=== PATIENT | female | born 1985 | race Caucasian/White ===

== ENCOUNTER 2018-01-21 11:54 | Emergency (ER) | payer MEDICAID, SELFPAY ==
[2018-01-21 12:24] VITALS: BP 118/90; PULSE 102; RESP 20; TEMP 36.8; O2SAT 99; BMI 38.0
[2018-01-21 12:50] LABS: UTC Influenza A Antigen Negative (Negative); UTC Influenza B Antigen Negative (Negative)
--- NOTE | 2018-01-21 13:06 | HMH.EDUTC ---
[facility] Disposition Clinical Impression: Cough Disposition: Home, Self-Care Condition on Discharge: Good Instructions: DI for Cough -- Adult Additional Instructions: * No sign of bacterial infection. Likely viral. Virus can take 7-14 days to run their course * Monitor Temp. Follow up if fever develops * Encourage fluids, water, gatorade, powerade, pedialyte if /toddler/child * sleep elevated * humidifier/vaporizer * Bromfed may cause drowsiness. Know how it effects you (or your child) before driving, caring for small children, or sending your child to school. No other antihistamines/allergy medications while taking bromfed. Prescriptions: Brompheniramine/Pseudoephed/Dm [Bromfed DM Cough Syrup 5mL] 10 ml PO QID PRN #240 ml PRN Reason: Cough Referrals: Elidia Salinas [Primary Care Provider] - (IMMEDIATELY for new or worsening symptoms OR no noticeable improvement over the next 48-72 hours. 911 for difficulty breathing or swallowing. ) Time of Disposition: 13:11 Medical Decision Making Vital Signs: 01/21/18 12:24 Temperature 98.2 F Temperature Source Temporal Artery Scan Pulse Rate [Left Brachial] 102 H Respiratory Rate 20 Blood Pressure [Left Arm] 118/90 Blood Pressure Mean [Left Arm] 99 Blood Pressure Source [Left Arm] Automatic Cuff Blood Pressure Position [Left Arm] Sitting 02 Sat by Pulse Oximetry 99 Oxygen Delivery Method Room Air - Lab Data Lab results reviewed: Yes: I reviewed the patient's lab results. Lab Results 01/21/18 12:37: Influenza Type A Ag Negative, Influenza Type B Ag Negative - Bryon Inquiry Pt receiving controlled substance: No [facility] HPI - General Stated complaint: drainage, cough Time Seen by Provider: 01/21/18 12:45 Mode of Arrival: Ambulatory Source of Information: Patient Limitations: No Limitations Description of Symptoms (Recalled from Triage Doc. by RN): COUGH AND SINUS DRAINAGE HEENT Symptoms (Recalled from RN notes): Yes (SINUS DRAINAGE) Resp Symptoms (Recalled from RN notes): Yes (COUGH) Skin Symptoms (Recalled from RN notes): No MS Symptoms (Recalled from RN notes): No Functional Status (Recalled from RN notes): N/A - History of Present Illness Provider Complaint: c/o cough x 3-4 days. Wants to rule out flu. Started w/ sore throat but that resolved. No fever, aches, chills. zyrtec hasn't helped. Hasn't taken anything else. Daughter with same symptoms. - Related Data Previous Rx's Medication Instructions Recorded Brompheniramine/Pseudoephed/Dm 10 ml PO QID PRN #240 ml 01/21/18 [Bromfed DM Cough Syrup 5mL] Allergies Allergy/AdvReac Type Severity Reaction Status Date / Time banana Allergy Unknown RASH/ITCHING Verified 01/21/18 12:29 [From BANANAS (FOOD/DRUG)] TONGUE codeine Allergy Unknown NA-NAUSEA/V Verified 01/21/18 12:29 OMITING Penicillins Allergy Unknown UNKNOWN Verified 01/21/18 12:29 From BANANAS (FOOD/DRUG) Allergy Unknown RASH/ITCHING Uncoded 11/19/17 14:41 TONGUE - Worker's Comp Is this a Worker's Comp case?: No [facility] History I have reviewed the patient's past medical history: Yes Medical History: Reports:: Gastroesophageal Reflux Disease(GERD) Denies:: Cancer, Diabetes Mellitus Type 1, Diabetes Mellitus Type 2, Hypertension, MRSA Other Surgeries: Yes: , Other (cholecystectomy, cone VISITOR SERVICES COORDINATOR procedure) Amputation: No Fractures: No - Social History Smoking Status: Current every day smoker Tobacco Type: cigarettes Alcohol Intake: never - Psychiatric History Expresses thoughts of harming self/others: None Suicide Plan Description: No Plan ROS Obtained: Yes Systems reviewed as appropriate & no additional complaints - Constitutional Constitutional: Reports as per HPI, Denies body ache, Denies chills, Denies fatigue, Denies poor appetite - Eyes Eyes: Denies eye discharge, Denies eye pain, Denies other (eye redness) - ENT Ears, Nose, Mouth, and Throat: Reports as per HPI, Denies otalgia, Repo
--- NOTE | 2018-01-21 13:10 | ED_ITS ---
[facility] [place] Impression: Cough Disposition: Home, Self-Care Condition on Discharge: Good Instructions: DI for Cough -- Adult Additional Instructions: * No sign of bacterial infection. Likely viral. Virus can take 7-14 days to run their course * Monitor Temp. Follow up if fever develops * Encourage fluids, water, gatorade, powerade, pedialyte if /toddler/ child * sleep elevated * humidifier/vaporizer * Bromfed may cause drowsiness. Know how it effects you (or your child) before driving, caring for small children, or sending your child to school. No other antihistamines/allergy medications while taking bromfed. Prescriptions: Brompheniramine/Pseudoephed/Dm [Bromfed DM Cough Syrup 5mL] 10 ml PO QID PRN # 240 ml PRN Reason: Cough Referrals: Elidia Salinas [Primary Care Provider] - (IMMEDIATELY for new or worsening symptoms OR no noticeable improvement over the next 48-72 hours. 911 for difficulty breathing or swallowing. ) Time of Disposition: 13:11 Medical Decision Making Vital Signs: 01/21/18 12:24 Temperature 98.2 F Temperature Source Temporal Artery Scan Pulse Rate [Left Brachial] 102 H Respiratory Rate 20 Blood Pressure [Left Arm] 118/90 Blood Pressure Mean [Left Arm] 99 Blood Pressure Source [Left Arm] Automatic Cuff Blood Pressure Position [Left Arm] Sitting 02 Sat by Pulse Oximetry 99 Oxygen Delivery Method Room Air - Lab Data Lab results reviewed: Yes: I reviewed the patient's lab results. Lab Results 01/21/18 12:37: Influenza Type A Ag Negative, Influenza Type B Ag Negative - Bryon Inquiry Pt receiving controlled substance: No [facility] [place] - General Stated complaint: drainage, cough Time Seen by Provider: 01/21/18 12:45 Mode of Arrival: Ambulatory Source of Information: Patient Limitations: No Limitations Description of Symptoms (Recalled from Triage Doc. by RN): COUGH AND SINUS DRAINAGE HEENT Symptoms (Recalled from RN notes): Yes (SINUS DRAINAGE) Resp Symptoms (Recalled from RN notes): Yes (COUGH) Skin Symptoms (Recalled from RN notes): No MS Symptoms (Recalled from RN notes): No Functional Status (Recalled from RN notes): N/A - History of Present Illness Provider Complaint: c/o cough x 3-4 days. Wants to rule out flu. Started w/ sore throat but that resolved. No fever, aches, chills. zyrtec hasn't helped. Hasn't taken anything else. Daughter with same symptoms. - Related Data Previous Rx's Medication Instructions Recorded Brompheniramine/Pseudoephed/Dm 10 ml PO QID PRN #240 ml 01/21/18 [Bromfed DM Cough Syrup 5mL] Allergies Allergy/AdvReac Type Severity Reaction Status Date / Time banana Allergy Unknown RASH/ITCHING Verified 01/21/18 12:29 [From BANANAS (FOOD/DRUG)] TONGUE codeine Allergy Unknown NA-NAUSEA/V Verified 01/21/18 12:29 OMITING Penicillins Allergy Unknown UNKNOWN Verified 01/21/18 12:29 From BANANAS (FOOD/DRUG) Allergy Unknown RASH/ITCHING Uncoded 11/19/17 14:41 TONGUE - Worker's Comp Is this a Worker's Comp case?: No H History I have reviewed the patient's past medical history: Yes Medical History: Reports:: Gastroesophageal Reflux Disease(GERD) Denies:: Cancer, Diabetes Mellitus Type 1, Diabetes Mellitus Type 2, Hypertension, MRSA Other Surgeries: Yes: , Other (cholecystectomy,
[2018-01-21 13:36] VITALS: BP 118/79; PULSE 76; RESP 20; TEMP 36.6
== END 2018-01-21 13:35 | disposition home or self-care (01) ==
PROVIDERS: Emergency Provider Nurse Practitioner Family; Family Provider Internal Medicine Adolescent Medicine; PCP Pediatrics
DX: R05 Cough (principal); K21.9 Gastro-esophageal reflux disease without esophagitis; F17.210 Nicotine dependence, cigarettes, uncomplicated; Z88.0 Allergy status to penicillin; Z88.6 Allergy status to analgesic agent
CPT/HCPCS: 87804; 99202

== ENCOUNTER 2020-09-05 10:41 | Emergency (ER) | payer OTHER, SELFPAY ==
[2020-09-05 11:09] VITALS: BP 138/78; PULSE 93; RESP 20; TEMP 36.6; O2SAT 96; BMI 37.0
--- NOTE | 2020-09-05 11:10 | HMH.EDUTC ---
[facility] [place] Impression: Sprain of left foot Qualifiers: Encounter type: initial encounter Qualified Code(s): S93.602A - Unspecified sprain of left foot, initial encounter Disposition: Home, Self-Care Condition on Discharge: Good Instructions: DI for Foot Sprain Additional Instructions: Rest the extremity, apply ice for 15 minutes as tolerated three or four times per day, Elevate the extremity as tolerated while you are resting. Use the crutches for ambulation. Wear the hard shoe for protection. Take ibuprofen for pain. I sent in a prescription to your pharmacy. Follow up with Dr. Rios. I put in a referral but you need to call her office and schedule an appointment. Follow up with your regular doctor. GO TO THE ER FOR ANY WORSENING SYMPTOMS Prescriptions: Ibuprofen [Ibuprofen 600mg Tablet] 600 mg PO Q6HP PRN #30 tab PRN Reason: Mild Pain Transmission Status: Received by [facility] Referrals: Elidia Salinas [Primary Care Provider] - Maritza Rios DPM [Staff Physician] - Forms: Work/School Release Time of Disposition: 11:39 Medical Decision Making - Medical Records Medical records reviewed: No: I reviewed the patient's medical records. - Bryon Inquiry Pt receiving controlled substance: No Vital Signs: 09/05/20 11:09 09/05/20 12:05 Temperature 97.8 F 97.8 F Temperature Source Oral Pulse Rate 93 H Pulse Rate [Left Brachial] 93 H Respiratory Rate 20 20 Blood Pressure 138/78 Blood Pressure [Right Arm] 138/78 Blood Pressure Mean [Right Arm] 98 Blood Pressure Source [Right Arm] Automatic Cuff Blood Pressure Position [Right Arm] Sitting 02 Sat by Pulse Oximetry 96 Oxygen Delivery Method Room Air - Radiology Data #1 Image(s): Ankle Image Reviewed: Yes I reviewed the patient's radiology image, Yes I have reviewed radiologist's interpretation Preliminary Findings: No Fracture Seen PROCEDURE: XR ANKLE LT MIN 3V CLINICAL INDICATION: FALL Pain COMPARISON: CR XR FOOT LT MIN 3V from 09/05/2020 FINDINGS: No fracture or dislocation. No lytic or blastic change. There is normal mineralization. The joint spaces are well-preserved. No significant degenerative/arthritic changes. No erosive changes evident. Other findings:None. IMPRESSION: No acute findings. Dictated by: Derrek Bacon MD 09/05/2020 11:48 Derrek Bacon MD in [place] 09/05/2020 11:48 [facility] [place] - General Stated complaint: AO 09/04/20 lt foot pain Time Seen by Provider: 09/05/20 11:10 - History of Present Illness Provider Complaint: She states that she was walking and she stepped on uneven ground and twisted her left foot and ankle. This occured yesterday. Since then she has had pain in her foot and ankle that is worse with bearing weight and walking. - Related Data Home Medications Medication Instructions Recorded Confirmed Ibuprofen [Ibuprofen 800mg 800 mg PO TIDP PRN 09/05/20 09/05/20 Tablet] Previous Rx's Medication Instructions Recorded Ibuprofen [Ibuprofen 600mg 600 mg PO Q6HP PRN #30 tab 09/05/20 Tablet] Allergies Allergy/AdvReac Type Severity Reaction Status Date / Time banana Allergy Unknown RASH/ITCHING Verified 12/19/18 12:34 [From BANANAS (FOOD/DRUG)] TONGUE codeine Allergy Unknown NA-NAUSEA/V Verified 12/19/18 12:34 OMITING Penicillins Allergy Unknown UNKNOWN Verified 12/19/18 12:34 [facility] History - Hepatitis A Screen Attestation statement:: This patient has been screened for Hepatitis A risk factors. I have reviewed the patient's past medical history: Yes Medical History: Reports:: Gastroesophageal Reflux Disease(GERD) Denies:: Cancer, Diabetes Mellitus Type 1, Diabetes Mellitus Type 2, Hypertension, MRSA Other Surgeries: Yes: , Other (cholecystectomy, cone REAL ESTATE INSPECTOR procedure) Amputation: No Fractures: No - Social History Smoking Status: Current every day smoker Tobacco Type: cigarettes # Pa
--- NOTE | 2020-09-05 11:13 | XR_ITS ---
PROCEDURE: XR FOOT LT MIN 3V CLINICAL INDICATION: FELL Pain following injury, lateral foot pain COMPARISON: No exams were available for comparison FINDINGS: Osteoarthritic changes are present at the 1st metatarsophalangeal joint with prominent bony hypertrophy at the distal aspect of the 1st metatarsal. No definite acute fracture or dislocation. There is a type 1 os navicularis. The os navicularis appears multi segmented. Other findings:None. IMPRESSION: 1. No acute fracture. 2. 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
--- NOTE | 2020-09-05 11:17 | XR_ITS ---
PROCEDURE: XR ANKLE LT MIN 3V CLINICAL INDICATION: FALL Pain COMPARISON: CR XR FOOT LT MIN 3V from 09/05/2020 FINDINGS: No fracture or dislocation. No lytic or blastic change. There is normal mineralization. The joint spaces are well-preserved. No significant degenerative/arthritic changes. No erosive changes evident. Other findings:None. IMPRESSION: No acute findings. Dictated by: Derrek Bacon MD 09/05/2020 11:48 Derrek Bacon MD in [place] 09/05/2020 11:48
[2020-09-05 12:05] VITALS: BP 138/78; PULSE 93; RESP 20; TEMP 36.6; O2SAT 96
== END 2020-09-05 12:11 | disposition home or self-care (01) ==
PROVIDERS: Emergency Provider Nurse Practitioner Family; PCP Pediatrics
DX: S93.602A Unspecified sprain of left foot, initial encounter (principal); X50.1XXA Overexertion from prolonged static or awkward postures, initial encounter; Y92.019 Unspecified place in single-family (private) house as the place of occurrence of the external cause; K21.9 Gastro-esophageal reflux disease without esophagitis; F17.210 Nicotine dependence, cigarettes, uncomplicated; Z88.0 Allergy status to penicillin
CPT/HCPCS: 73610; 73630; 99201

== ENCOUNTER 2020-09-27 15:34 | Emergency (ER) | payer OTHER, SELFPAY ==
[2020-09-27 16:05] VITALS: BP 142/92; PULSE 97; RESP 16; TEMP 36.8; O2SAT 98; BMI 39.8
[2020-09-27 16:17] LABS: UTC Strep Screen (Rapid) Negative (Negative)
--- NOTE | 2020-09-27 16:18 | HMH.EDUTC ---
[facility] [place] Clinical Impression: Otitis media Qualifiers: Otitis media type: unspecified Laterality: right Qualified Code(s): H66.91 - Otitis media, unspecified, right ear Disposition: Home, Self-Care Condition on Discharge: Good Instructions: Middle Ear Infection, Middle Ear Infections (Alternative Therapy) Additional Instructions: *Monitor Temp, Over the counter Motrin or Tylenol as directed/as needed Tylenol every 4 hours and Motrin every 6 hours (as long as your family doctor has told you that you can take it) for fever or pain. and straight to ER if unable to lower temp less than 101.0 after medication given *Warm salt water gargles may help to soothe the throat *Throat Lozenges *Warm fluids like tea with honey may help to soothe the throat *Sleep elevated *Humidifier/Vaporizer Your throat swab was sent for culture. Those results are typically sent to your primary care. Be sure to follow up in 2-3 days with your family doctor/primary care physician if no improvement so they can review those result and treat if necessary. If you don?t have a primary care doctor, I recommend you get one but in the mean time, you will have to return to a walk in clinic Follow up IMMEDIATELY for new or worsening symptoms or no Noticeable improvement over the next 48-72 hours. 911 for difficulty breathing or swallowing You was tested for today for COVID19 your test result should be back in the next 24 hours, you may call tomorrow after 9am to see if your test results are back and the result You was given a handout with instructions for Self Quarantine and Self isolation for while you wait on test results and what to do if they are positive Prescriptions: Fluticasone Propionate [Flonase 50mcg nasal spray 16gm] 1 - 2 spr NS DAILY #1 bottle Transmission Status: Pending to [facility] Azithromycin [Z-Aldo 250mg Tab] 250 mg PO DIRECTED #6 tab Transmission Status: Pending to [facility] Referrals: Elidia Salinas [Primary Care Provider] - As needed Forms: Work/School Release Time of Disposition: 16:28 Medical Decision Making - Bryon Inquiry Pt receiving controlled substance: No Bryon was queried for this patient: No Vital Signs: 09/27/20 16:05 Temperature 98.2 F Temperature Source Oral Pulse Rate [Radial] 97 H Respiratory Rate 16 Blood Pressure [Right Arm] 142/92 H Blood Pressure Mean [Right Arm] 108 Blood Pressure Source [Right Arm] Automatic Cuff Blood Pressure Position [Right Arm] Sitting 02 Sat by Pulse Oximetry 98 Oxygen Delivery Method Room Air - Lab Data Lab results reviewed: Yes: I reviewed the patient's lab results. Lab Results 09/27/20 16:15: Strep Scn Rapid Clinic Negative Orders (Tests/Meds): ORDERS Category Date Time Status Strep Screen Confirmation Stat Micro 09/27/20 16:15 Received [facility] [place] - General Stated complaint: sore throat, ear ache Time Seen by Provider: 09/27/20 16:19 Mode of Arrival: Ambulatory Source of Information: Patient Limitations: No Limitations Description of Symptoms (Recalled from Triage Doc. by RN): cough, sore throat, head congestion, nausea, body aches, denies fever. HEENT Symptoms (Recalled from RN notes): Yes Resp Symptoms (Recalled from RN notes): No Skin Symptoms (Recalled from RN notes): No MS Symptoms (Recalled from RN notes): No Functional Status (Recalled from RN notes): wnl - History of Present Illness Provider Complaint: Patient states that she has been having sinus pain and pressure along with pain in both ears, sore throat and over all not feeling well States that she hasnt had a fever that she is aware of but feels like her ears are full and causing pain States that today she wasnt feeling better so she come in - Related Data Home Medications Medication Instructions Recorded Confirmed Ibuprofen [Ibuprofen 800mg 800 mg PO TIDP PRN 09/05/20 09/05/20 Tablet] Previous Rx's Medication Instructions Rec
[2020-09-27 16:46] VITALS: BP 142/92; PULSE 97; RESP 16; TEMP 36.8; O2SAT 98
[2020-09-27 20:58] LABS: Adenovirus,PCR Not Detected (NotDetected); Bordetella Pertussis Not Detected (NotDetected); Chlamydophila Pneumoniae, PCR Not Detected (NotDetected); Coronavirus 19, PCR Not Detected (NotDetected); Coronavirus 229E Not Detected (NotDetected); Coronavirus NL63 Not Detected (NotDetected); Coronavirus OC43 Not Detected (NotDetected); Coronovirus HKU1,PCR Not Detected (NotDetected); Human Metapneumovirus Not Detected (NotDetected); Influenza A, PCR Not Detected (NotDetected); Influenza AH1, 2009 Not Detected (NotDetected); Influenza AH1, PCR Not Detected (NotDetected); Influenza AH3,PCR Not Detected (NotDetected); Influenza B, PCR Not Detected (NotDetected); Mycoplasma Pneumoniae, PCR Not Detected (NotDetected); Parainfluenza 1, PCR Not Detected (NotDetected); Parainfluenza 2, PCR Not Detected (NotDetected); Parainfluenza 3, PCR Not Detected (NotDetected); Parainfluenza 4, PCR Not Detected (NotDetected); Respiratory Syncytial Virus Not Detected (NotDetected)
[2020-09-28 07:18] LABS: Rhinovirus/Enterovirus Detected (NotDetected)
== END 2020-09-27 16:47 | disposition home or self-care (01) ==
PROVIDERS: Emergency Provider Nurse Practitioner; PCP Pediatrics
DX: H66.91 Otitis media, unspecified, right ear (principal); K21.9 Gastro-esophageal reflux disease without esophagitis; F17.210 Nicotine dependence, cigarettes, uncomplicated; Z88.0 Allergy status to penicillin
CPT/HCPCS: 87581; 87633; 87798; 87880; 99202; U0003

== ENCOUNTER 2022-02-03 12:50 | Emergency (ER) | payer OTHER, SELFPAY ==
[2022-02-03 12:51] VITALS: BP 134/70; PULSE 83; RESP 16; TEMP 36.6; O2SAT 97; BMI 39.0
[2022-02-03 13:11] LABS: Microscopic, Urine URINE MICROSCOPIC (MICROSCOPIC)
--- NOTE | 2022-02-03 13:13 | HMH.EDGENADL ---
ED Disposition Clinical Impression: Threatened Disposition: Home, Self-Care Condition on Discharge: Good Instructions: DI for Vaginal Bleeding Referrals: Elidia Salinas [Primary Care Provider] - Aleksander Curiel MD [Staff Physician] - - Critical Care Critical Care Time: No Attestation: On 02/03/22, the high probability of a clinically significant, sudden or life threatening deterioration of the following system(s) required my full and direct attention, intervention and personal management. The time I documented below is in addition to time spent performing reported procedures but includes the following listed in this critical care notation. Medical Decision Making - Medical Records Medical records reviewed: Yes: I reviewed the patient's medical records. - Bryon Inquiry Pt receiving controlled substance: No Vital Signs: 02/03/22 12:51 Temperature 97.8 F Temperature Source Oral Pulse Rate [Left Radial] 83 Respiratory Rate 16 Blood Pressure [Right Arm] 134/70 Blood Pressure Mean [Right Arm] 91 Blood Pressure Source [Right Arm] Automatic Cuff Blood Pressure Position [Right Arm] Sitting 02 Sat by Pulse Oximetry 97 Oxygen Delivery Method Room Air - Lab Data Lab Results 02/03/22 13:08: Urine Color Yellow, Urine Appearance Clear, Urine pH 8.0, Ur Specific Browning 1.010, Urine Protein Negative, Urine Glucose (UA) Negative, Urine Ketones Negative, Urine Blood 3+, Urine Nitrate Negative, Urine Bilirubin Negative, Urine Urobilinogen 0.2, Ur Leukocyte Esterase Negative, Urine RBC Occasional, Urine WBC Occasional, Ur Squamous Epith Cells 3-5, Urine Mucus 1+ 02/03/22 13:08: WBC 9.4, RBC 5.16, Hgb 15.9, Hct 48.9 H, MCV 94.8, MCH 30.8, MCHC 32.5, RDW 13.3, Plt Count 333, MPV 8.6, Neut % (Auto) 62.0, Lymph % (Auto) 27.8, [place] % (Auto) 5.3, Eos % (Auto) 1.9, Baso % (Auto) 3.0 H, Neut # (Auto) 5.8, Lymph # (Auto) 2.6, [place] # (Auto) 0.5, Eos # (Auto) 0.2, Baso # (Auto) 0.3 H 02/03/22 13:08: Sodium 134 L, Potassium 3.9, Chloride 102, Carbon Dioxide 27, Anion Gap 8.9, BUN 9, Creatinine 0.50 L, Estimated Creat Clear 218, Estimated GFR 138, Est GFR ( Amer) 167, Glucose 87, Calcium 8.7, Total Bilirubin 0.5, AST 35, ALT 38, Alkaline Phosphatase 64, Total Protein 7.3, Albumin 4.2, Globulin 3.1, Albumin/Globulin Ratio 1.4, HCG, Quant 28 H 02/03/22 13:08: Serum HCG, Qual Positive Result diagrams: 02/03/22 13:08 02/03/22 13:08 Orders (Tests/Meds): ED MEDICATIONS Generic Name Dose Route Start Last Admin Trade Name Freq PRN Reason Stop Dose Admin Sodium Chloride 10 ml 02/03/22 13:05 Sodium Chloride 0.9% 10ml Flush Syringe IV 03/05/22 13:04 NEEDED PRN Maintain IV Site Discontinued Medications Generic Name Dose Route Start Last Admin Trade Name Freq PRN Reason Stop Dose Admin Sodium Chloride 1,000 mls @ 999 mls/hr 02/03/22 13:15 Sod Chlor 0.9% 1000ml Bag IV 02/03/22 14:15 .Q1H1M INGA - Reevaluation(s) Time: 14:39 Reevaluation #1: On reevaluation, the patient is feeling better. She does have a very low hCG serum quant. It could be very early in the , however this is more likely miscarriage. Regardless the patient will need repeat hCG level within 48 hours. 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 Patient was given strict return precautions. Verbalized understanding. Medical Decision Narrative: 36-year-old female presented to the emergency department with some vaginal bleeding. There is concern for miscarriage versus threatened . Work-up initiated. General Adult HPI - General Chief complaint: Vaginal Bleeding Stated complaint: 6 weeks , bleeding Time Seen by Provider: 02/03/22 12:55 Mode of Arrival: Ambulatory Limitations: No Limitations Description of Symptoms (Recalled from ER Triage Doc. by RN): c/o vaginal bleeding prior to arrival to ER. Pt states she is around 6 weeks . Denies any abodmen pain -
[2022-02-03 13:15] LABS: Appearance,Urine CLEAR (Clear); Bilirubin,Urine Negative (Negative); Blood, Urine 3+ (Negative); Color,Urine YELLOW (Yellow); Glucose,Urine (UA) Negative (Negative); Ketones,Urine Negative (Negative); Leukocyte Esterase,Urine Negative (Negative); Nitrate,Urine Negative (Negative); Protein,Urine Negative (Negative); Urobilinogen,Urine 0.2 EU/dl (0.2)
[2022-02-03 13:29] LABS: Mucus,Urine 1+ /lpf; RBC,Urine Occasional #/hpf (0-3); WBC,Urine Occasional #/hpf (0-3)
[2022-02-03 13:36] LABS: Chloride 102 mmol/L (98-107); Sodium 134 mmol/L (136-145)
[2022-02-03 13:37] LABS: Potassium 3.9 mmoL/L (3.5-5.1)
[2022-02-03 13:39] LABS: Alanine Aminotransferase 38 U/L (12-78); Albumin Level 4.2 g/dl (3.5-5.0); Albumin/Globulin Ratio 1.4 (1.1-1.8); Alkaline Phosphatase 64 U/L (38-126); Anion Gap 8.9 mEq/L (5-15); Aspartate Amino Transferase 35 U/L (14-36); Bilirubin,Total 0.5 mg/dl (0.2-1.3); Blood Urea Nitrogen 9 mg/dl (7-17); Carbon Dioxide 27 mmol/L (22.0-30.0); Creatinine Clearance Estimated 218 mL/min (50-200); Estimated Glomerular Filt Rate 138 ml/min (>60); GFR (African American) 167 ML/MIN (>60); Globulin 3.1 g/dL (1.3-3.2); Total Protein,Serum 7.3 g/dl (6.3-8.2)
[2022-02-03 13:40] LABS: Calcium 8.7 mg/dl (8.4-10.2); Glucose 87 mg/dl (74-100)
[2022-02-03 13:56] LABS: HCG,Quantitative 28 mIU/ml (0-5.42)
[2022-02-03 14:00] LABS: HCG Qualitative, Serum Positive (Negative)
[2022-02-03 14:27] LABS: Basophils # 0.3 K/mm3 (0-0.2); Eosinophils # 0.2 K/mm3 (0.0-0.4); Eosinophils % 1.9 % (0.1-12.0); Hematocrit 48.9 % (37.0-47.0); Hemoglobin 15.9 g/dL (12.2-16.2); Lymphocytes # 2.6 K/mm3 (0.7-4.5); Lymphocytes % 27.8 % (10-50); Mean Corpuscular HGB Conc 32.5 g/dL (31.8-35.4); Mean Corpuscular Hemoglobin 30.8 pg (27.0-31.2); Mean Corpuscular Volume 94.8 fl (81-99); Mean Platelet Volume 8.6 fl (7.4-10.4); Monocytes # 0.5 K/mm3 (0.1-1.0); Monocytes % 5.3 % (1.7-9.3); Neutrophils # 5.8 K/mm3 (1.8-7.8); Platelet Count 333 K/mm3 (142-424); Red Blood Count 5.16 M/mm3 (4.20-5.40); Red Cell Distribution Width 13.3 % (11.5-17.5); White Blood Count 9.4 K/mm3 (4.8-10.8)
[2022-02-03 15:04] VITALS: BP 128/74; PULSE 82; RESP 16; TEMP 36.6; O2SAT 97
== END 2022-02-03 15:06 | disposition home or self-care (01) ==
PROVIDERS: Emergency Provider Emergency Medicine; PCP Pediatrics
DX: N93.9 Abnormal uterine and vaginal bleeding, unspecified (principal); K21.9 Gastro-esophageal reflux disease without esophagitis; F17.210 Nicotine dependence, cigarettes, uncomplicated; Z79.1 Long term (current) use of non-steroidal anti-inflammatories (NSAID); Z79.51 Long term (current) use of inhaled steroids; Z79.899 Other long term (current) drug therapy; Z88.0 Allergy status to penicillin; Z88.5 Allergy status to narcotic agent; Z91.018 Allergy to other foods
CPT/HCPCS: 80053; 81001; 84702; 84703; 85025; 96365; 99283

== ENCOUNTER → 2022-02-05 07:50 | Outpatient (CLI) | payer OTHER, SELFPAY ==
[2022-02-05 09:50] LABS: HCG,Quantitative 16 mIU/ml (0-5.42)
== END ==
PROVIDERS: Visit Provider Emergency Medicine
DX: Z34.90 Encounter for supervision of normal pregnancy, unspecified, unspecified trimester (principal); Z3A.01 Less than 8 weeks gestation of pregnancy
CPT/HCPCS: 36415; 84702

== ENCOUNTER 2022-08-23 11:52 | Emergency (ER) | payer OTHER, SELFPAY ==
[2022-08-23 14:20] VITALS: BP 115/44; PULSE 92; RESP 20; TEMP 36.7; O2SAT 100; BMI 38.5
[2022-08-23 14:42] LABS: UTC Influenza A Antigen Negative (Negative); UTC Influenza B Antigen Negative (Negative)
--- NOTE | 2022-08-23 14:58 | EXP.UTC ---
Discharge Plan Disposition Patient Disposition: Home, Self-Care Condition: Good Prescriptions Prescriptions: New azithromycin [Zithromax Z-Aldo] 250 mg tablet See Rx Instructions .ROUTE .COMPLEX 5 Days Qty: 6 0RF Rx Instructions: For 250 mg dose pack: take 500 mg today (day 1), then 250 mg for 4 days (days 2-5) ondansetron 4 mg tablet,disintegrating 4 mg PO Q8H PRN (Reason: nausea and vomiting) Qty: 6 0RF No Action ibuprofen 800 MG tablet 800 mg PO TIDP PRN (Reason: Moderate Pain) ibuprofen 600 MG tablet 600 mg PO Q6HP PRN (Reason: Mild Pain) Qty: 30 0RF azithromycin 250 MG tablet 250 mg PO DIRECTED Qty: 6 0RF Rx Instructions: Take two (2) tablets on day #1, then one (1) tablet day #2 thru #5 fluticasone propionate 120 SPR/BOT bottle 1 - 2 spr NS DAILY Qty: 1 0RF Rx Instructions: each nostril daily Referrals Follow up/Referrals: Elidia Salinas [Primary Care Provider] - See instructions Activity Restrictions/Add. Instructions Additional Instructions/Restrictions: *Increase fluids. Water not Soda or Tea *Start antibiotic immediately and be sure to take as ordered for the FULL length of time although you should start to see improvement over the next 48 hours *Pyridium as needed Remember this medication will turn your urine . This is normal but it will stain what ever it gets on *You should not use Pyridium for more than 48 hours. If so , follow up with your primary physician to review urine culture and ensure that antibiotic is adequate for infection *Be SURE to follow up anytime for new or worsening symptoms with your family doctor. AND in 48 hours for urine culture results with your family doctor, if you do not have a doctor then you may call back to the [facility] for urine culture results and further treatment. We do recommend that you choose and establish care with a Primary Care Physician. ?AND follow up with them ?in 10-14 days to repeat UA to ensure infection is resolved and blood no longer present *Be sure to let your PCP know that we sent urine cultures from the [facility] so they can follow up to ensure that you area the on the correct antibiotic Call your doctor office and make appointment for 48 hours (2 days from today) ?to follow up and get the results of your urine culture and further treatment Clinical Impressions Clinical Impression: Sinusitis Instructions Patient Instructions: DI for Sinusitis, Sinusitis Discharge ED Provider: Eve Tripp [facility] [place] HPI General Stated complaint: vomiting x2 days Mode of Arrival: Ambulatory Source of Information: Patient Limitations: No Limitations Time Seen by Provider: 08/23/22 14:58 Description of Symptoms (Recalled from Triage Doc. by RN): PATIENT C/O NAUSEA, VOMITING, DIARRHEA, AND COUGH WITH RIB PAIN X 2 DAYS HEENT Symptoms (Recalled from RN notes): No Resp Symptoms (Recalled from RN notes): Yes Skin Symptoms (Recalled from RN notes): No MS Symptoms (Recalled from RN notes): No Functional Status (Recalled from RN notes): WNL History of Present Illness Provider Complaint: Patient states that she has not been feeling well for the last couple of days States she has been having sinus pain and pressure for over a week, Nausea, vomiting and diarrhea and pain in ribs with cough States that today she was still feeling bad so she came in Related Data Home Medications Medication Instructions Recorded Confirmed ibuprofen 800 mg tablet 800 mg PO TIDP PRN Moderate Pain 09/05/20 09/05/20 Previous Rx's Medication Instructions Recorded ibuprofen 600 mg tablet 600 mg PO Q6HP PRN Mild Pain #30 09/05/20 tabs azithromycin 250 mg tablet 250 mg PO DIRECTED #6 tabs 09/27/20 fluticasone propionate 50 1 - 2 spr NS DAILY ##1 09/27/20 mcg/actuation nasal spray,suspension azithromycin 250 mg tablet See Rx Instructions PO .COMPLEX 5 08/23/22 (Zithromax Z-Aldo) days #6 tabs ondansetron 4 mg disintegrating 4 mg PO Q8H PRN nausea and 08/03
[2022-08-23 15:05] VITALS: BP 115/44; PULSE 92; RESP 20; TEMP 36.7; O2SAT 100
[2022-08-23 15:08] LABS: UTC Pregnancy Test, Urine Negative (Negative)
[2022-08-23 15:24] LABS: Adenovirus,PCR Not Detected (NotDetected); Bordetella Pertussis Not Detected (NotDetected); Chlamydophila Pneumoniae, PCR Not Detected (NotDetected); Coronavirus 19, PCR Not Detected (NotDetected); Coronavirus 229E Not Detected (NotDetected); Coronavirus NL63 Not Detected (NotDetected); Coronavirus OC43 Not Detected (NotDetected); Coronovirus HKU1,PCR Not Detected (NotDetected); Human Metapneumovirus Not Detected (NotDetected); Influenza A, PCR Not Detected (NotDetected); Influenza AH1, 2009 Not Detected (NotDetected); Influenza AH1, PCR Not Detected (NotDetected); Influenza AH3,PCR Not Detected (NotDetected); Influenza B, PCR Not Detected (NotDetected); Mycoplasma Pneumoniae, PCR Not Detected (NotDetected); Parainfluenza 1, PCR Not Detected (NotDetected); Parainfluenza 2, PCR Not Detected (NotDetected); Parainfluenza 3, PCR Not Detected (NotDetected); Parainfluenza 4, PCR Not Detected (NotDetected); Respiratory Syncytial Virus Not Detected (NotDetected); Rhinovirus/Enterovirus Not Detected (NotDetected)
== END 2022-08-23 15:10 | disposition home or self-care (01) ==
PROVIDERS: Emergency Provider Nurse Practitioner; PCP Pediatrics
DX: J32.9 Chronic sinusitis, unspecified (principal)
CPT/HCPCS: 81025; 87581; 87632; 87798; 87804; 99212; C9803; G0463; U0003; U0005

== ENCOUNTER 2022-09-03 22:33 | Emergency (ER) | payer SELFPAY ==
[2022-09-03 22:34] VITALS: BP 122/72; PULSE 78; RESP 19; TEMP 36.9; O2SAT 97; BMI 38.5
[2022-09-03 23:26] LABS: Microscopic, Urine URINE MICROSCOPIC (MICROSCOPIC)
[2022-09-03 23:30] VITALS: BP 112/64; PULSE 74; O2SAT 97
[2022-09-03 23:32] LABS: Appearance,Urine CLEAR (Clear); Blood, Urine 3+ (Negative); Color,Urine YELLOW (Yellow); Glucose,Urine (UA) Negative (Negative); Ketones,Urine Negative (Negative); Leukocyte Esterase,Urine TRACE (Negative); Nitrate,Urine Negative (Negative); PH,Urine 5.5 (5.0-8.5); Protein,Urine 1+ (Negative); Specific Gravity, Urine >= 1.030 (1.005-1.030); Urobilinogen,Urine 0.2 EU/dl (0.2)
[2022-09-03 23:34] LABS: Basophils # 0.2 K/mm3 (0-0.2); Basophils % 1.5 % (0.1-2.0); Eosinophils # 0.2 K/mm3 (0.0-0.4); Hematocrit 46.1 % (37.0-47.0); Hemoglobin 15.1 g/dL (12.2-16.2); Lymphocytes # 3.3 K/mm3 (0.7-4.5); Lymphocytes % 29.6 % (10-50); Mean Corpuscular HGB Conc 32.7 g/dL (31.8-35.4); Mean Corpuscular Hemoglobin 30.6 pg (27.0-31.2); Mean Corpuscular Volume 93.6 fl (81-99); Mean Platelet Volume 8.3 fl (7.4-10.4); Monocytes # 0.6 K/mm3 (0.1-1.0); Monocytes % 5.2 % (1.7-9.3); Neutrophils # 6.8 K/mm3 (1.8-7.8); Neutrophils % 61.7 % (37.0-80.0); Platelet Count 263 K/mm3 (142-424); Red Blood Count 4.93 M/mm3 (4.20-5.40); Red Cell Distribution Width 13.7 % (11.5-17.5)
--- NOTE | 2022-09-03 23:38 | PC.NURSE ---
Pt resting in bed. Pt complains of pain. RN notified.
[2022-09-03 23:43] LABS: Bilirubin,Urine 1+ (Negative)
[2022-09-03 23:44] LABS: Bacteria,Urine Trace /lpf; Calcium Oxalate Crystals,Urine 1+ /lpf; RBC,Urine 20-50 #/hpf (0-3); WBC,Urine Occasional #/hpf (0-3); Yeast,Urine 1+ /lpf
[2022-09-03 23:45] LABS: Alanine Aminotransferase 25 U/L (12-78); Albumin/Globulin Ratio 1.3 (1.1-1.8); Alkaline Phosphatase 70 U/L (38-126); Anion Gap 12.9 mEq/L (5-15); Aspartate Amino Transferase 29 U/L (14-36); Blood Urea Nitrogen 10 mg/dl (7-17); Calcium 8.9 mg/dl (8.4-10.2); Carbon Dioxide 25 mmol/L (22.0-30.0); Chloride 101 mmol/L (98-107); Creatinine Clearance Estimated 158 mL/min (50-200); Estimated Glomerular Filt Rate 93 ml/min (>60); GFR (African American) 113 ML/MIN (>60); Globulin 3.1 g/dL (1.3-3.2); Glucose 112 mg/dl (74-100); Lactic Acid 1.2 mmol/L (0.7-2.1); Potassium 3.9 mmoL/L (3.5-5.1); Sodium 135 mmol/L (136-145); Total Protein,Serum 7.1 g/dl (6.3-8.2)
[2022-09-03 23:52] LABS: Bilirubin,Total < 0.1 mg/dl (0.2-1.3)
--- NOTE | 2022-09-04 | CT_ITS ---
PROCEDURE INFORMATION: Exam: CT Abdomen And Pelvis With Contrast Exam date and time: 09/04/2022 12:16 AM Age: 37 years old Clinical indication: Abdominal pain; Localized; Lower; Prior surgery; Surgery type: 2 c sections, cholecystectomy; Additional info: Pelvic pain, back pain TECHNIQUE: Imaging protocol: Computed tomography of the abdomen and pelvis with contrast. Radiation optimization: All CT scans at this facility use at least one of these dose optimization techniques: automated exposure control; mA and/or kV adjustment per patient size (includes targeted exams where dose is matched to clinical indication); or iterative reconstruction. Contrast material: ISOVUE; Contrast volume: 75 ml; Contrast route: IV; COMPARISON: RUQ US RUQ-(ABD LTD)1ORGAN/QUAD/FU 01/09/2016 8:25 AM FINDINGS: Lungs: Nonspecific minor right anterior basilar streaky opacities suggest atelectasis or parenchymal scarring. The visualized lung bases are otherwise. Pleural spaces: There are no pleural effusions. Heart: The visualized portions of the heart are unremarkable. There is no evidence of pericardial fluid collections. Liver: There is diffuse decrease in hepatic parenchymal density consistent with fatty infiltration. Gallbladder and bile ducts: There has been a cholecystectomy. Pancreas: The pancreas is normal. Spleen: An accessory splenule is present. The spleen demonstrates punctate calcifications, consistent with remote granulomatous organism exposure. Adrenal glands: The adrenal glands are normal. Kidneys and ureters: The left kidney is normal. There is a distal right ureteral calcification just above the ureterovesicular junction measuring approximately 4.9 mm resulting in mild hydronephrosis and hydroureter. There is mild delay in the right renal nephrogram. Stomach and bowel: The stomach is normal. The duodenum is unremarkable. Lack of gastrointestinal contrast limits evaluation of bowel. Appendix: A normal appendix is identified. Intraperitoneal space: There is no evidence of free intraperitoneal or pelvic fluid. Vasculature: No abdominal aortic aneurysm. Lymph nodes: There is no evidence of pathologic adenopathy. Urinary bladder: The bladder is decompressed. Reproductive: The uterus is normal. The left ovary is normal. There is a bilobed rounded hypodensity involving the right ovary measuring 4.6 x 3.1 by 2.8 cm. This likely reflects a large septated cyst or more likely 2 adjacent functional cysts. Bones/joints: There are mild degenerative changes of the hip joints. There are mild degenerative changes of the right sacroiliac joints. There is no evidence of acute fracture. Soft tissues: There is a tiny fat-containing umbilical hernia. IMPRESSION: 1. Distal right ureteral calcification just above the UV junction measuring approximately 4.9 mm resulting in mild hydronephrosis and hydroureter in mild delayed nephrogram. Of note, the stone is not definitively seen on the CT scanogram. 2. Bilobed rounded hypodensity involving the right ovary measuring 4.6 x 3.1 by 2.8 cm likely reflects a septated cyst or more likely 2 adjacent functional cysts. 3. Ftty hepatic infiltration. 4. Tiny fat- containing umbilical hernia.
[2022-09-04 00:01] VITALS: BP 98/59; PULSE 68; O2SAT 95
[2022-09-04 00:15] LABS: HCG Qualitative, Serum Negative (Negative)
--- NOTE | 2022-09-04 01:12 | PC.NURSE ---
Updated pt on POC. Pt advised that we were still waiting on scan results. No needs or complaints voiced.
--- NOTE | 2022-09-04 01:14 | PC.NURSE ---
NUSRAT Rodrigues advised she would speak with [facility] concerning pts scan
[2022-09-04 01:31] VITALS: BP 112/56; PULSE 66; O2SAT 98
--- NOTE | 2022-09-04 01:38 | PC.NURSE ---
Lauren Espana, advised that PHILIP was reading scan now.
[2022-09-04 02:00] VITALS: BP 118/73; PULSE 65; O2SAT 98
--- NOTE | 2022-09-04 02:17 | HMH.EDABDPAI ---
Discharge Plan Disposition Patient Disposition: Home, Self-Care Prescriptions Prescriptions: New tamsulosin [Flomax] 0.4 mg capsule 0.4 mg PO DAILY Qty: 10 0RF ketorolac 10 mg tablet 10 mg PO Q6H PRN (Reason: pain) 2 Days Qty: 10 0RF No Action ibuprofen 800 MG tablet 800 mg PO TIDP PRN (Reason: Moderate Pain) ondansetron 4 mg tablet,disintegrating 4 mg PO Q8H PRN (Reason: nausea and vomiting) Qty: 6 0RF Referrals Follow up/Referrals: Moe Mejia MD [Primary Care Provider] - See instructions Clinical Impressions Clinical Impression: Renal colic on right side Instructions Patient Instructions: DI for Kidney Stones Discharge ED Provider: Kenton Basilio Abdominal Pain HPI General Chief Complaint: Abdominal Pain Stated Complaint: poss UTI,nausea Time Seen by Provider: 09/04/22 02:17 Mode of Arrival: Family Vehicle Source of Information: Patient, Parent(s) and Medical Record Limitations: No Limitations Description of Symptoms (Recalled from ER Triage Doc. by RN): Pt c/o of back pain, peivc pain & pressure, urinary frequency & urgency, and dysuria. States these symptoms bagan 2 days ago. Pt also c/o nausea without vomiting. Denies any fever or chills. Pt took 800mg of motrin @ 5 BALLOON TESTER. History of Present Illness HPI narrative: acute onset of rt sided pelvic pain worse tonight but has been ongoing over the last 2 days - with urinary sx and nausea complaint: abdominal pain Onset (ago): day(s) Consistency: intermittent Location: suprapubic and R flank Severity: moderate Associated symptoms: nausea Related Data Home Medications Medication Instructions Recorded Confirmed ibuprofen 800 mg tablet 800 mg PO TIDP PRN Moderate Pain 09/05/20 09/05/20 Previous Rx's Medication Instructions Recorded ondansetron 4 mg disintegrating 4 mg PO Q8H PRN nausea and 08/23/22 tablet vomiting #6 tabs ketorolac 10 mg tablet 10 mg PO Q6H PRN pain 2 days #10 09/04/22 tabs tamsulosin 0.4 mg capsule (Flomax) 0.4 mg PO DAILY #10 caps 09/04/22 Allergies Allergy/AdvReac Type Severity Reaction Status Date / Time banana Allergy Unknown RASH/ITCHING Verified 12/19/18 12:34 [From BANANAS (FOOD/DRUG)] TONGUE codeine Allergy Unknown NA-NAUSEA/V Verified 12/19/18 12:34 OMITING Penicillins Allergy Unknown UNKNOWN Verified 12/19/18 12:34 [facility] Medical History (Updated 09/04/22 @ 02:27 by Kenton Basilio MD) Asthma Urinary tract infection Surgical History (Updated 08/23/22 @ 14:36 by Roro De Leon, RN) History of section History of cholecystectomy Social History (Updated 08/23/22 @ 14:36 by Roro De Leon, RN) Smoking Status: Current every day smoker tobacco type: cigarettes packs per day: 1 second hand exposure: Yes alcohol intake: never current occupational status: employed Travel in the last 8 weeks: None housing: house ROS Obtained: Yes All systems reviewed & no additional complaints except as documented Physical Exam General General appearance: alert Head Head exam: normocephalic Eye Eye exam: Present PERRL and EOMI ENT ENT exam: Present mucous membranes moist Neck Neck exam: Present trachea midline Respiratory Respiratory exam: Absent respiratory distress Cardiovascular Cardiovascular exam: Present regular rate Abdominal Exam Abdominal exam: Present soft and tenderness; Absent guarding or rebound Abdominal tenderness: Present suprapubic and moderate Extremities Exam Extremities exam: Present full ROM Back Exam Back exam: Absent CVA tenderness (R) Neurological Exam Neurological exam: Present alert and oriented X3; Absent motor sensory deficit Psychiatric Psychiatric exam: Present normal affect Skin Skin exam: Absent rash Medical Decision Making Medical Records Medical records reviewed: Yes I reviewed the patient's medical records. Bryon Inquiry Pt receiving controlled substance: No Vital Signs:
[2022-09-04 02:31] VITALS: BP 116/70; PULSE 81; RESP 16; TEMP 36.8; O2SAT 97
== END 2022-09-04 02:53 | disposition home or self-care (01) ==
PROVIDERS: Emergency Provider Emergency Medicine; PCP Pediatrics
DX: R30.0 Dysuria (principal); R11.2 Nausea with vomiting, unspecified; M54.9 Dorsalgia, unspecified; J45.909 Unspecified asthma, uncomplicated; F17.210 Nicotine dependence, cigarettes, uncomplicated; Z79.1 Long term (current) use of non-steroidal anti-inflammatories (NSAID); Z79.899 Other long term (current) drug therapy
CPT/HCPCS: 74177; 80053; 81001; 83605; 84703; 85025; 96361; 96374; 96375; 99285; J2405; Q9967

== ENCOUNTER 2022-10-16 08:11 | Emergency (ER) | payer SELFPAY ==
--- NOTE | 2022-10-16 08:34 | EXP.UTC ---
Discharge Plan Disposition Patient Disposition: Home, Self-Care Condition: Good Prescriptions Prescriptions: New azithromycin [Zithromax] 250 mg tablet 250 mg PO UD DOSE PK Qty: 6 0RF Rx Instructions: Take two (2) tablets today, then one (1) tablet days #2 thru #5 benzonatate [benzonatate] 100 mg capsule 100 mg PO TIDP PRN (Reason: Cough) Qty: 30 0RF methylprednisolone 4 mg Tablets,Dose Pack 4 mg PO DIRECTED Qty: 21 0RF ondansetron 4 mg Tablet,Disintegrating 4 mg PO Q8H PRN (Reason: Nausea) Qty: 12 0RF No Action ibuprofen 800 MG tablet 800 mg PO TIDP PRN (Reason: Moderate Pain) ondansetron 4 mg tablet,disintegrating 4 mg PO Q8H PRN (Reason: nausea and vomiting) Qty: 6 0RF tamsulosin [Flomax] 0.4 mg capsule 0.4 mg PO DAILY Qty: 10 0RF ketorolac 10 mg tablet 10 mg PO Q6H PRN (Reason: pain) 2 Days Qty: 10 0RF Referrals Follow up/Referrals: Moe Mejia MD [Primary Care Provider] - See instructions Activity Restrictions/Add. Instructions Additional Instructions/Restrictions: Drink plenty of fluids. Take tylenol or ibuprofen for pain or fever. Take the medications as directed. Follow up with your regular doctor. GO TO THE ER FOR ANY WORSENING SYMPTOMS Clinical Impressions Clinical Impression: Pharyngitis, Acute viral syndrome Stand Alone Forms Stand Alone Forms: Work/School Release Instructions Patient Instructions: Strep Throat, DI for Strep Throat Discharge ED Provider: Jarek Aceves [facility] General Stated complaint: possible strep Time Seen by Provider: 10/16/22 08:34 History of Present Illness Provider Complaint: She states that for the past 3 days she has had a sore throat, chills, low grade fever, and nausea. Her daughter tested positive for strep throat 3 days ago. Related Data Home Medications Medication Instructions Recorded Confirmed ibuprofen 800 mg tablet 800 mg PO TIDP PRN Moderate Pain 09/05/20 09/05/20 Previous Rx's Medication Instructions Recorded ondansetron 4 mg disintegrating 4 mg PO Q8H PRN nausea and 08/23/22 tablet vomiting #6 tabs ketorolac 10 mg tablet 10 mg PO Q6H PRN pain 2 days #10 09/04/22 tabs tamsulosin 0.4 mg capsule (Flomax) 0.4 mg PO DAILY #10 caps 09/04/22 azithromycin 250 mg tablet 250 mg PO UD DOSE PK #6 tabs 10/16/22 (Zithromax) benzonatate 100 mg capsule 100 mg PO TIDP PRN Cough #30 caps 10/16/22 methylprednisolone 4 mg tablets in 4 mg PO DIRECTED #21 tabs 10/16/22 a dose pack ondansetron 4 mg disintegrating 4 mg PO Q8H PRN Nausea #12 tabs 10/16/22 tablet Allergies Allergy/AdvReac Type Severity Reaction Status Date / Time banana Allergy Unknown RASH/ITCHING Verified 12/19/18 12:34 [From BANANAS (FOOD/DRUG)] TONGUE codeine Allergy Unknown NA-NAUSEA/V Verified 12/19/18 12:34 OMITING Penicillins Allergy Unknown UNKNOWN Verified 12/19/18 12:34 [facility] History Asthma Urinary tract infection Surgical History History of section History of cholecystectomy Social History Smoking Status: Current every day smoker tobacco type: cigarettes packs per day: 1 second hand exposure: Yes alcohol intake: never current occupational status: employed Travel in the last 8 weeks: None housing: house ROS Obtained: Yes All systems reviewed & no additional complaints except as documented Constitutional Constitutional: Reports chills and Reports fever(s) Eyes Eyes: Denies eye discharge ENT Ears, Nose, Mouth, and Throat: Reports as per HPI Cardiovascular Cardiovascular: Denies chest pain Respiratory Respiratory: Denies chest congestion and Reports cough Gastrointestinal Gastrointestingal: Reports nausea; Denies abdominal pain, constipation, cramping, diarrhea or vomiting Muscu
[2022-10-16 08:52] VITALS: BP 124/72; PULSE 98; RESP 16; TEMP 36.9; O2SAT 96; BMI 39.1
[2022-10-16 08:55] LABS: UTC Strep Screen (Rapid) Negative (Negative)
[2022-10-16 09:05] VITALS: BP 124/72; PULSE 98; RESP 16; TEMP 36.9
== END 2022-10-16 09:15 | disposition home or self-care (01) ==
PROVIDERS: Emergency Provider Nurse Practitioner Family; PCP Pediatrics
DX: J02.9 Acute pharyngitis, unspecified (principal); B34.9 Viral infection, unspecified
CPT/HCPCS: 87880; 99212; G0463

== ENCOUNTER 2023-07-14 21:14 | Emergency (ER) | payer OTHER, SELFPAY ==
[2023-07-14 21:15] VITALS: BP 125/77; PULSE 96; RESP 18; O2SAT 97; BMI 41.1
[2023-07-14 22:00] VITALS: BP 121/71; PULSE 86; RESP 20; O2SAT 96
[2023-07-14 22:06] LABS: Microscopic, Urine URINE MICROSCOPIC (MICROSCOPIC)
--- NOTE | 2023-07-14 22:07 | HMH.EDGENADL ---
Discharge Plan Disposition Patient Disposition: Home, Self-Care Condition: Good Prescriptions Prescriptions: New ketorolac 10 mg tablet 10 mg PO Q8H PRN (Reason: pain) Qty: 14 0RF Discontinued ibuprofen 800 MG tablet 800 mg PO TIDP PRN (Reason: Moderate Pain) ketorolac 10 mg tablet 10 mg PO Q6H PRN (Reason: pain) 2 Days Qty: 10 0RF No Action ondansetron 4 mg tablet,disintegrating 4 mg PO Q8H PRN (Reason: nausea and vomiting) Qty: 6 0RF azithromycin [Zithromax] 250 mg tablet 250 mg PO UD DOSE PK Qty: 6 0RF Rx Instructions: Take two (2) tablets today, then one (1) tablet days #2 thru #5 benzonatate [benzonatate] 100 mg capsule 100 mg PO TIDP PRN (Reason: Cough) Qty: 30 0RF methylprednisolone 4 mg Tablets,Dose Pack 4 mg PO DIRECTED Qty: 21 0RF ondansetron 4 mg Tablet,Disintegrating 4 mg PO Q8H PRN (Reason: Nausea) Qty: 12 0RF tamsulosin [Flomax] 0.4 mg capsule 0.4 mg PO DAILY Qty: 10 0RF Referrals Follow up/Referrals: Moe Pennington [Primary Care Provider] - See instructions Activity Restrictions/Add. Instructions Additional Instructions/Restrictions: As discussed, I do not see any acute findings on her labs or CT imaging, your pain may be due to overuse injury or diverticular disease. Please return with any new or worsening symptoms. Clinical Impressions Clinical Impression: Abdominal pain, acute, left lower quadrant, Diverticula of intestine Instructions Patient Instructions: DI for Abdominal Pain -- Child Discharge ED Provider: Camilo Britton Adult HPI General Chief complaint: PAIN Stated complaint: left side pain Time Seen by Provider: 07/14/23 21:41 Mode of Arrival: Ambulatory Source of Information: Patient Limitations: No Limitations Description of Symptoms (Recalled from ER Triage Doc. by RN): Presents to ED with c/o sudden onset LLQ abd/groin pain that she describes as a pulling pain that started at 1600 after getting off work. Patient reports she does do heavy lifting at work. Denies urinary symptoms/fever and also taking any meds [employer]. History of Present Illness HPI narrative: Patient presents for evaluation of moderate in severity nonradiating left lower quadrant pain with no precipitating injury, no dysuria, no frequency, is able to pass flatus and have bowel movements, no fevers or chills or nausea or vomiting, no diarrhea or blood in stool, has had similar symptoms before due to diverticulitis. Reports surgical history of abdomen x2. No pain elsewhere. Related Data Previous Rx's Medication Instructions Recorded ondansetron 4 mg disintegrating 4 mg PO Q8H PRN nausea and 08/23/22 tablet vomiting #6 tabs tamsulosin 0.4 mg capsule (Flomax) 0.4 mg PO DAILY #10 caps 09/04/22 azithromycin 250 mg tablet 250 mg PO UD DOSE PK #6 tabs 10/16/22 (Zithromax) benzonatate 100 mg capsule 100 mg PO TIDP PRN Cough #30 caps 10/16/22 methylprednisolone 4 mg tablets in 4 mg PO DIRECTED #21 tabs 10/16/22 a dose pack ondansetron 4 mg disintegrating 4 mg PO Q8H PRN Nausea #12 tabs 10/16/22 tablet ketorolac 10 mg tablet 10 mg PO Q8H PRN pain #14 tabs 07/14/23 Allergies Allergy/AdvReac Type Severity Reaction Status Date / Time banana Allergy Unknown RASH/ITCHING Verified 12/19/18 12:34 [From BANANAS (FOOD/DRUG)] TONGUE codeine Allergy Unknown NA-NAUSEA/V Verified 12/19/18 12:34 OMITING Penicillins Allergy Unknown UNKNOWN Verified 12/19/18 12:34 [facility] Disclaimer: The information contained in this section may have been updated after the patient was seen, as this information can be updated by other users. Medical History Asthma Urinary tract infection Surgical History History of section History of cholecystectomy Social History Smoking Status: Monik
[2023-07-14 22:10] LABS: Appearance,Urine CLEAR (Clear); Bilirubin,Urine Negative (Negative); Blood, Urine Negative (Negative); Color,Urine YELLOW (Yellow); Glucose,Urine (UA) Negative (Negative); Ketones,Urine Negative (Negative); Leukocyte Esterase,Urine Negative (Negative); Nitrate,Urine Negative (Negative); Protein,Urine Negative (Negative); Specific Gravity, Urine 1.025 (1.005-1.030); Urobilinogen,Urine 0.2 EU/dl (0.2)
[2023-07-14 22:23] LABS: Amorphous Sediment,Urine 1+ /lpf; Bacteria,Urine 1+ /lpf; Calcium Oxalate Crystals,Urine 2+ /lpf; WBC,Urine Occasional #/hpf (0-3)
[2023-07-14 22:31] VITALS: BP 134/71; PULSE 88; RESP 18; O2SAT 97
--- NOTE | 2023-07-14 22:31 | CT_ITS ---
PROCEDURE INFORMATION: Exam: CT Abdomen And Pelvis With Contrast Exam date and time: 07/14/2023 11:15 PM Age: 38 years old Clinical indication: Abdominal pain; Additional info: Severe llq pain TECHNIQUE: Imaging protocol: Computed tomography of the abdomen and pelvis with contrast. Radiation optimization: All CT scans at this facility use at least one of these dose optimization techniques: automated exposure control; mA and/or kV adjustment per patient size (includes targeted exams where dose is matched to clinical indication); or iterative reconstruction. Contrast material: ISOVUE; Contrast volume: 75 ml; Contrast route: IV; REPORTING DATA: Count of CT and Cardiac NM exams in prior 12 months: This patient has received [address] and 0 known cardiac nuclear medicine studies in the 12 months prior to the current study. COMPARISON: CT ABDOMEN PELVIS W CON 09/04/2022 12:16 AM FINDINGS: Liver: Normal. No mass. Gallbladder and bile ducts: The patient is status post cholecystectomy. Pancreas: Normal. No ductal dilation. Spleen: There are multiple calcifications in the spleen most likely reflects small granulomas. Adrenal glands: Normal. No mass. Kidneys and ureters: Normal. No hydronephrosis. Stomach and bowel: Unremarkable. No obstruction. No mucosal thickening. Appendix: No evidence of appendicitis. Intraperitoneal space: Unremarkable. No free air. No significant fluid collection. Vasculature: Unremarkable. No abdominal aortic aneurysm. Lymph nodes: Minimally prominent retroperitoneal lymph nodes are stableThere are scattered colonic diverticula without CT evidence for active diverticulitis. Urinary bladder: Unremarkable as visualized. Reproductive: Unremarkable as visualized. Bones/joints: There is diffuse degenerative disease of the visualized osseous structures. Soft tissues: Unremarkable. IMPRESSION: No acute pathology is identified in the abdomen or pelvis.
[2023-07-14 22:55] LABS: Basophils # 0.1 K/mm3 (0-0.2); Basophils % 0.8 % (0.1-2.0); Eosinophils # 0.3 K/mm3 (0.0-0.4); Eosinophils % 3.1 % (0.1-12.0); Hematocrit 47.7 % (37.0-47.0); Hemoglobin 15.3 g/dL (12.2-16.2); Lymphocytes # 3.2 K/mm3 (0.7-4.5); Lymphocytes % 33.1 % (10-50); Mean Corpuscular HGB Conc 32.2 g/dL (31.8-35.4); Mean Corpuscular Hemoglobin 29.5 pg (27.0-31.2); Mean Corpuscular Volume 91.9 fl (81-99); Mean Platelet Volume 10.7 fl (7.4-10.4); Monocytes # 0.5 K/mm3 (0.1-1.0); Monocytes % 4.9 % (1.7-9.3); Neutrophils # 5.6 K/mm3 (1.8-7.8); Neutrophils % 58.1 % (37.0-80.0); Platelet Count 217 K/mm3 (142-424); Red Blood Count 5.19 M/mm3 (4.20-5.40); Red Cell Distribution Width 13.3 % (11.5-17.5); White Blood Count 9.7 K/mm3 (4.8-10.8)
[2023-07-14 23:04] LABS: HCG Qualitative, Serum Negative (Negative)
[2023-07-14 23:05] LABS: Alanine Aminotransferase 33 U/L (12-78); Albumin Level 4.3 g/dl (3.5-5.0); Albumin/Globulin Ratio 1.2 (1.1-1.8); Alkaline Phosphatase 46 U/L (38-126); Anion Gap 12.2 mEq/L (5-15); Aspartate Amino Transferase 39 U/L (14-36); Bilirubin,Total 0.4 mg/dl (0.2-1.3); Blood Urea Nitrogen 9 mg/dl (7-17); Calcium 9.6 mg/dl (8.4-10.2); Carbon Dioxide 26 mmol/L (22.0-30.0); Chloride 105 mmol/L (98-107); Creatinine Clearance Estimated 233 mL/min (50-200); Estimated Glomerular Filt Rate 137 ml/min (>60); GFR (African American) 165 ML/MIN (>60); Globulin 3.6 g/dL (1.3-3.2); Glucose 107 mg/dl (74-100); Lipase 43 U/L (23-300); Potassium 4.2 mmoL/L (3.5-5.1); Sodium 139 mmol/L (136-145); Total Protein,Serum 7.9 g/dl (6.3-8.2)
--- NOTE | 2023-07-14 23:18 | PC.NURSE ---
pt. back from radiology
[2023-07-14 23:56] VITALS: BP 139/74; PULSE 88; RESP 19; TEMP 36.6
== END 2023-07-14 23:59 | disposition home or self-care (01) ==
PROVIDERS: Emergency Provider Emergency Medicine; PCP Pediatrics
DX: R10.32 Left lower quadrant pain (principal); K57.32 Diverticulitis of large intestine without perforation or abscess without bleeding; J45.909 Unspecified asthma, uncomplicated; F17.210 Nicotine dependence, cigarettes, uncomplicated
CPT/HCPCS: 74177; 80053; 81001; 83690; 84703; 85025; 96374; 99285; Q9967

== ENCOUNTER 2023-09-25 14:42 | Emergency (ER) | payer OTHER, SELFPAY ==
[2023-09-25 14:50] VITALS: BP 143/71; PULSE 100; RESP 18; TEMP 37; O2SAT 96; BMI 41.1
--- NOTE | 2023-09-25 14:54 | EXP.UTC ---
Discharge Plan Disposition Patient Disposition: Home, Self-Care Condition: Good Prescriptions Prescriptions: New benzonatate [benzonatate] 100 mg capsule 100 mg PO TIDP PRN (Reason: Cough) Qty: 30 0RF cefdinir 300 mg capsule 300 mg PO BID Qty: 20 0RF methylprednisolone 4 mg Tablets,Dose Pack 4 mg PO DIRECTED Qty: 21 0RF guaifenesin [Mucinex] 600 mg tablet extended release 12hr 600 - 1,200 mg PO BIDP PRN (Reason: Congestion) Qty: 30 0RF No Action ondansetron 4 mg tablet,disintegrating 4 mg PO Q8H PRN (Reason: nausea and vomiting) Qty: 6 0RF azithromycin [Zithromax] 250 mg tablet 250 mg PO UD DOSE PK Qty: 6 0RF Rx Instructions: Take two (2) tablets today, then one (1) tablet days #2 thru #5 benzonatate [benzonatate] 100 mg capsule 100 mg PO TIDP PRN (Reason: Cough) Qty: 30 0RF methylprednisolone 4 mg Tablets,Dose Pack 4 mg PO DIRECTED Qty: 21 0RF ondansetron 4 mg Tablet,Disintegrating 4 mg PO Q8H PRN (Reason: Nausea) Qty: 12 0RF tamsulosin [Flomax] 0.4 mg capsule 0.4 mg PO DAILY Qty: 10 0RF ketorolac 10 mg tablet 10 mg PO Q8H PRN (Reason: pain) Qty: 14 0RF Referrals Follow up/Referrals: Moe Mejia MD [Primary Care Provider] - See instructions Activity Restrictions/Add. Instructions Additional Instructions/Restrictions: Drink plenty of fluids. Take tylenol or ibuprofen for pain or fever. Take the medications as directed. Follow up with your regular doctor. GO TO THE ER FOR ANY WORSENING SYMPTOMS Clinical Impressions Clinical Impression: Sinusitis Stand Alone Forms Stand Alone Forms: Work/School Release Instructions Patient Instructions: Sinusitis, DI for Sinusitis Discharge ED Provider: Jarek Aceves [facility] General Stated complaint: suspected sinus infection, lane Time Seen by Provider: 09/25/23 14:54 Related Data Previous Rx's Medication Instructions Recorded ondansetron 4 mg disintegrating 4 mg PO Q8H PRN nausea and 08/23/22 tablet vomiting #6 tabs tamsulosin 0.4 mg capsule (Flomax) 0.4 mg PO DAILY #10 caps 09/04/22 azithromycin 250 mg tablet 250 mg PO UD DOSE PK #6 tabs 10/16/22 (Zithromax) benzonatate 100 mg capsule 100 mg PO TIDP PRN Cough #30 caps 10/16/22 methylprednisolone 4 mg tablets in 4 mg PO DIRECTED #21 tabs 10/16/22 a dose pack ondansetron 4 mg disintegrating 4 mg PO Q8H PRN Nausea #12 tabs 10/16/22 tablet ketorolac 10 mg tablet 10 mg PO Q8H PRN pain #14 tabs 07/14/23 benzonatate 100 mg capsule 100 mg PO TIDP PRN Cough #30 caps 09/25/23 cefdinir 300 mg capsule 300 mg PO BID #20 caps 09/25/23 guaifenesin 600 mg tablet, 600 - 1,200 mg PO BIDP PRN 09/25/23 extended release 12 hr (Mucinex) Congestion #30 tabs methylprednisolone 4 mg tablets in 4 mg PO DIRECTED #21 tabs 09/25/23 a dose pack Allergies Allergy/AdvReac Type Severity Reaction Status Date / Time banana Allergy Unknown RASH/ITCHING Verified 09/25/23 15:06 [From BANANAS (FOOD/DRUG)] TONGUE codeine Allergy Unknown NA-NAUSEA/V Verified 09/25/23 15:06 OMITING Penicillins Allergy Unknown UNKNOWN Verified 09/25/23 15:06 [facility] Disclaimer: The information contained in this section may have been updated after the patient was seen, as this information can be updated by other users. Medical History Asthma Urinary tract infection Surgical History History of section History of cholecystectomy Social History Smoking Status: Current every day smoker tobacco type: cigarettes packs per day: 1 second hand exposure: Yes alcohol intake: never current occupational status: employed Travel in the last 8 weeks: None housing: house ROS Obtained: Yes All systems reviewed & no additional complaints except as documented Constitution
[2023-09-25 15:58] VITALS: BP 143/71; PULSE 100; RESP 18; TEMP 37; O2SAT 96
== END 2023-09-25 15:58 | disposition home or self-care (01) ==
PROVIDERS: Emergency Provider Nurse Practitioner Family; PCP Pediatrics
DX: J01.90 Acute sinusitis, unspecified (principal)
CPT/HCPCS: 99212; 99214; G0463

== ENCOUNTER 2023-11-28 12:56 | Emergency (ER) | payer OTHER, SELFPAY ==
[2023-11-28 13:45] VITALS: BP 128/75; PULSE 91; RESP 20; TEMP 36.8; O2SAT 95; BMI 42.1
[2023-11-28 14:01] LABS: UTC Influenza A Antigen Negative (Negative); UTC Influenza B Antigen Negative (Negative); UTC Strep Screen (Rapid) Negative (Negative)
--- NOTE | 2023-11-28 14:05 | EXP.UTC ---
Discharge Plan Disposition Patient Disposition: Home, Self-Care Condition: Good Referrals Follow up/Referrals: Elidia Salinas [Primary Care Provider] - See instructions Activity Restrictions/Add. Instructions Additional Instructions/Restrictions: *Monitor Temp, Over the counter Motrin or Tylenol as directed/as needed Tylenol every 4 hours and Motrin every 6 hours (as long as your family doctor has told you that you can take it) for fever or pain. and straight to ER if unable to lower temp less than 101.0 after medication given *Warm salt water gargles may help to soothe the throat *Throat Lozenges? *Warm fluids like tea with honey may help to soothe the throat? *Sleep elevated *Humidifier/Vaporizer Your throat swab was sent for culture. Those results are typically sent to your primary care. Be sure to follow up in 2-3 days with your family doctor/primary care physician if no improvement so they can review those result and treat if necessary. If you don?t have a primary care doctor, I recommend you get one but in the mean time, you will have to return to a walk in clinic Follow up IMMEDIATELY for new or worsening symptoms or no Noticeable improvement over the next 48-72 hours. 911 for difficulty breathing or swallowing You were tested for today for COVID19 your test result should be back in the next 24 hours, you may check your results on the [facility] My Health Portal if your COVID test is positive you must Quarantine for 5 days Clinical Impressions Clinical Impression: Viral upper respiratory infection Instructions Patient Instructions: Sore Throat, DI for Nasal Congestion Discharge ED Provider: Eve Tripp [facility] [place] General Stated complaint: sore throat, runny nose Mode of Arrival: Ambulatory Source of Information: Patient Limitations: No Limitations Time Seen by Provider: 11/28/23 14:09 Description of Symptoms (Recalled from Triage Doc. by RN): PATIENT C/O NAUSEA, HEAD CONGESTION, AND SORE THROAT X 2-3 DAYS. RECENTLY EXPOSED TO FLU AND RSV HEENT Symptoms (Recalled from RN notes): Yes Resp Symptoms (Recalled from RN notes): No Skin Symptoms (Recalled from RN notes): No MS Symptoms (Recalled from RN notes): No Functional Status (Recalled from RN notes): WNL History of Present Illness Provider Complaint: Patient states that she has recently been around her son that has RSV and flu b and her had flu b last week and for the last few days she has been having sore throat, head congestion and and nausea States that she is 11wks OB and wanted to come in and get tested Related Data Allergies Allergy/AdvReac Type Severity Reaction Status Date / Time banana Allergy Unknown RASH/ITCHING Verified 09/25/23 15:06 [From BANANAS (FOOD/DRUG)] TONGUE codeine Allergy Unknown NA-NAUSEA/V Verified 09/25/23 15:06 OMITING Penicillins Allergy Unknown UNKNOWN Verified 09/25/23 15:06 Worker's Comp Is this a Worker's Comp case?: No [facility] Disclaimer: The information contained in this section may have been updated after the patient was seen, as this information can be updated by other users. Medical History Asthma Urinary tract infection Surgical History History of section History of cholecystectomy Social History Smoking Status: Current every day smoker tobacco type: cigarettes packs per day: 1 second hand exposure: Yes alcohol intake: never current occupational status: employed Travel in the last 8 weeks: None housing: house ROS Obtained: Yes All systems reviewed & no additional complaints except as documented and Yes Systems reviewed as appropriate & no additional complaints except as documented Constitutional Constitutional: Reports system reviewed and no additional complaints, except as documented and Reports as per HPI ENT Ears, Nose, Mouth, and Throat: Reports system reviewed and no additional complaints, except as documented, Reports as per HPI, Reports nasal congestion, Reports nasal discharge and Reports sore throat Cardiovascular Cardiovascular: Reports system reviewed and no additional complaints, except as documented and Reports as per HPI Respiratory Respiratory: Reports system reviewed and no additional complaints, except as documented and Reports as per HPI Gastrointestinal Gastrointestingal: Reports system reviewed and no additional complaints, except as documented, as per HPI and nausea Musculoskeletal Musculoskeletal: Reports system reviewed and no additional complaints, except as documented and Reports as per HPI Physical Exam General General appearance: alert and in no apparent distress ENT ENT exam: Present mucous membranes moist Expanded ENT Exam Nose exam: Absent sinus tenderness Throat exam: Present other (Pharyngeal erythema noted with PND) Chest Chest inspection: Present normal inspection and symmetric chest wall rise Respiratory Respiratory exam: Present normal lung sounds bilaterally; Absent respiratory distress or wheezes Cardiovascular Cardiovascular exam: Present regular rate, normal rhythm and normal heart sounds Neurological Exam Neurological exam: Present alert, oriented X3 and normal gait Medical Decision Making Bryon Inquiry Pt receiving controlled substance: No Bryon was queried for this patient: No Vital Signs: 11/28/23 13:45 Temperature 98.2 F Temperature Source Oral Pulse Rate [Left Brachial] 91 H Respiratory Rate 20 Blood Pressure [Left Arm] 128/75 Blood Pressure Mean [Left Arm] 92 02 Sat by Pulse Oximetry 95 Oxygen Delivery Method Room Air Lab Data Lab results reviewed: Yes I reviewed the patient's lab results. Lab Results 11/28/23 13:43: Influenza Type A Ag Negative, Influenza Type B Ag Negative, Strep Scn Rapid Clinic Negative Orders (Tests/Meds): ORDERS Category Date Time Status Strep Screen Confirmation Stat Micro 11/28/23 13:43 Received
[2023-11-28 14:17] VITALS: BP 128/75; PULSE 91; RESP 20; TEMP 36.8; O2SAT 95
[2023-11-28 14:24] LABS: Adenovirus,PCR Not Detected (NotDetected); Coronavirus 19, PCR Not Detected (NotDetected); Coronavirus 229E Not Detected (NotDetected); Coronavirus NL63 Not Detected (NotDetected); Coronavirus OC43 Not Detected (NotDetected); Coronovirus HKU1,PCR Not Detected (NotDetected); Human Metapneumovirus Not Detected (NotDetected); Influenza A, PCR Not Detected (NotDetected); Influenza AH1, 2009 Not Detected (NotDetected); Influenza AH1, PCR Not Detected (NotDetected); Influenza AH3,PCR Not Detected (NotDetected); Influenza B, PCR Not Detected (NotDetected); Parainfluenza 1, PCR Not Detected (NotDetected); Parainfluenza 2, PCR Not Detected (NotDetected); Parainfluenza 3, PCR Not Detected (NotDetected); Parainfluenza 4, PCR Not Detected (NotDetected); Respiratory Syncytial Virus Not Detected (NotDetected); Rhinovirus/Enterovirus Not Detected (NotDetected)
== END 2023-11-28 14:20 | disposition home or self-care (01) ==
PROVIDERS: Emergency Provider Nurse Practitioner; PCP Pediatrics
DX: O26.891 Other specified pregnancy related conditions, first trimester (principal); J06.9 Acute upper respiratory infection, unspecified; R07.0 Pain in throat; R09.81 Nasal congestion; R11.0 Nausea; B34.9 Viral infection, unspecified; Z20.828 Contact with and (suspected) exposure to other viral communicable diseases; Z3A.11 11 weeks gestation of pregnancy
CPT/HCPCS: 87632; 87635; 87804; 87880; 99212; 99213; G0463